=== PATIENT | male | born 1945 | race Caucasian/White ===

== ENCOUNTER 2017-05-18 22:13 | Observation (INO) | payer MEDICARE ==
[~2017-05-18 22:13] MED LIST: ISOVUE-370 76%-LOCM 1 ML ONE
[2017-05-18 22:38] LABS: #Eosinphils 0.2 thou/uL (0.0-0.7); #Lymphocytes 1.2 thou/uL (1.20-3.40); #Monocytes 0.6 thou/uL (0.11-0.59); #Neutrophils 3.9 thou/uL (1.40-6.50); %Basophils 0.7 % (0.0-1.0); %Eosinophils 3.2 % (0.0-10.0); %Monocytes 9.9 % (0.0-10.0); Mean Platelet Volume 7.2 fL (7.4-10.4); Red Blood Cell (RBC) Count 3.98 mill/uL (4.70-6.10); White Blood Cell (WBC) Count 5.9 thou/uL (4.8-10.8)
--- NOTE | 2017-05-18 22:58 | RAD ---
UPRIGHT PORTABLE CHEST ONE VIEW: 05/18/17 HISTORY: 72-year-old male with cough and worsening shortness of breath. COMPARISON: 12/14/14 FINDINGS: A left ICD. Heart size is within normal limits. The lungs are clear. No confluent pneumonia, overt e yokasta or pleural effusion. IMPRESSION: No acute intrathoracic disease. POS: [facility]
[2017-05-18 23:00] LABS: ALT (SGPT) 68 U/L (8-55); AST (SGOT) 28 U/L (5-34); Alkaline Phosphatase 67 U/L (40-150); Anion Gap 15 mmol/L (10-20); BUN (Urea Nitrogen) 29 mg/dL (8.4-25.7); Bilirubin, Total 0.6 mg/dL (0.2-1.2); Calc. Creatinine Clearance 0 mL/min (70-130); Calcium 9.5 mg/dL (7.8-10.44); Carbon Dioxide 24 mmol/L (23-31); Chloride 103 mmol/L (98-107); Estimated GFR-MDRD 41; Globulin 2.9 g/dL (2.4-3.5); Lipase 21 U/L (8-78); Protein, Total 6.7 g/dL (5.8-8.1)
[2017-05-18 23:03] LABS: Troponin I 0.012 ng/mL (< 0.028)
--- NOTE | 2017-05-18 23:56 | CT ---
CT ANGIOGRAM OF CHEST INCLUDING 3D RENDERIN05/18/17 HISTORY: 72-year-old male with shortness of breath. There are some bilateral calcified granulomata. In addition, there are some scattered somewhat linea r pleural based parenchymal changes having an appearance most consistent with some subsegmental atel ectasis or chronic change. Several small noncalcified nodules are noted one in the right lower lobe up to approximately 0.4 cm and a second somewhat ground glass opacity up to 0.4 cm in size are noted . There is no evidence for significant pulmonary embolism. There is three vessel coronary artery edmar cific disease. No pericardial effusion or pleural effusion. The visualized upper abdomen is unremark able. No mediastinal mass or adenopathy. IMPRESSION: No significant CT evidence for acute pulmonary embolism. Some scattered bilateral mostly linear and pleural based parenchymal changes possibly chronic change or subsegmental atelectasis. Multiple bila teral calcified small pulmonary nodules as well as some noncalcified nodular densities less than 0.5 cm in size. No other acute process. CODE: LUNG NODULE POS: [facility]
[2017-05-19] MEDS ORDERED: Furosemide 20 MG/2 ML VIAL ONE (01:30)
[2017-05-19] MEDS ORDERED: Ondansetron HCl/PF 4 MG/2 ML Vial IVP PRN (02:30)
[2017-05-19] MEDS ORDERED: Acetaminophen 325 MG TAB PO PRN ×2 (02:30→06:07)
[2017-05-19] MEDS ORDERED: Ondansetron ODT 4 MG TAB SL PRN (02:30)
[2017-05-19 03:28] VITALS: BMI 27.0
[2017-05-19 05:26] LABS: Anion Gap 14 mmol/L (10-20); BUN (Urea Nitrogen) 28 mg/dL (8.4-25.7); Calc. Creatinine Clearance 47 mL/min (70-130); Calcium 9.9 mg/dL (7.8-10.44); Carbon Dioxide 27 mmol/L (23-31); Chloride 102 mmol/L (98-107); Estimated GFR-MDRD 42
[2017-05-19 05:29] LABS: Troponin I 0.022 ng/mL (< 0.028)
--- NOTE | 2017-05-19 05:50 | PDOC.EVN ---
Event Note - Event Note Event Note: [id number] h&p dictated 1. Dyspnea 2. SHILA 3. H/O HTN 4. H/O DM type 2 5. CAD Plan: see orders
[2017-05-19] MEDS ORDERED: HumaLOG 300 UNITS/3 ML VIAL SC PRN (06:09)
[2017-05-19] MEDS ORDERED: Dextrose 5% in Water 1,000 ML IV PRN (06:09)
[2017-05-19] MEDS ORDERED: Dextrose 50% Abboject 50 ML SYRINGE SLOW IVP PRN (06:09)
[2017-05-19] MEDS ORDERED: Sodium Chloride 0.9% 1,000 ML IV SCH (06:15)
[2017-05-19] MEDS: Levothyroxine Sodium 88 MCG TAB PO SCH ×2 (07:02→08:26)
[2017-05-19] MEDS: glipiZIDE 10 MG TAB PO SCH (08:26)
[2017-05-19] MEDS: Folic Acid 1 MG TAB PO SCH (08:27)
[2017-05-19] MEDS ORDERED: Atenolol 50 MG TAB PO SCH (09:00)
[2017-05-19] MEDS ORDERED: FLU VACC TS2017-18 (>65YR) 0.5 ML SYRINGE IM ONE (09:00)
--- NOTE | 2017-05-19 11:03 | PDOC.PN ---
- Subjective Encounter Start Date: 05/19/17 Encounter Start Time: 08:55 Subjective: sob better, no chest pain - Objective MAR Reviewed: Yes Vital Signs & Weight: Vital Signs (12 hours) Temp Pulse Resp BP Pulse Ox 05/19/17 08:28 98.3 F 72 16 05/19/17 08:26 72 05/19/17 08:00 98.3 F 72 14 137/63 94 L 05/19/17 03:01 69 148/65 H 05/19/17 02:24 97.9 F 70 20 195/83 H 100 Weight Weight 172 lb 11.2 oz I&O: 05/18/17 05/19/17 05/20/17 06:59 06:59 06:59 Intake Total 240 Output Total 300 Balance -60 Result Diagrams: 05/18/17 22:29 05/19/17 05:00 Additional Labs: Accuchecks 05/19/17 06:22 POC Glucose 171 H Phys Exam - Physical Examination HEENT: PERRLA, moist MMs Neck: no JVD, supple Respiratory: no wheezing, no rales Cardiovascular: RRR, no significant murmur Gastrointestinal: soft, non-tender, positive bowel sounds Musculoskeletal: no edema, pulses present Neurological: non-focal, moves all 4 limbs Psychiatric: A&O x 3 Dx/Plan (1) CHF exacerbation Code(s): I50.9 - HEART FAILURE, UNSPECIFIED Status: Acute Qualifiers: Congestive heart failure type: diastolic Qualified Code(s): I50.33 - Acute on chronic diastolic (congestive) heart failure (2) SHILA (acute kidney injury) Code(s): N17.9 - ACUTE KIDNEY FAILURE, UNSPECIFIED Status: Acute (3) DM type 2 (diabetes mellitus, type 2) Status: Chronic Qualifiers: Diabetes mellitus complication status: with unspecified complications Diabetes mellitus mcc insulin use: without assistant terminal manager use Qualified Code( s): E11.8 - Type 2 diabetes mellitus with unspecified complications (4) HTN (hypertension) Code(s): I10 - ESSENTIAL (PRIMARY) HYPERTENSION Status: Chronic Qualifiers: Hypertension type: essential hypertension Qualified Code(s): I10 - Essential (primary) hypertension (5) CAD (coronary artery disease) Code(s): I25.10 - ATHSCL HEART DISEASE OF [place] CORONARY ARTERY W/O ANG PCTRS Status: Chronic Qualifiers: Coronary Disease-Associated Artery/Lesion type: [place] artery [place] vs. transplanted heart: [place] heart Associated angina: without angina Qualified Code(s): I25.10 - Atherosclerotic heart disease of [place] coronary artery without angina pectoris (6) h/o vtach Status: Chronic Comment: with ablation done in [facility] in 11/2014 for recurrent mono Vtach - Plan dc iv fluids -: one dose lasix -: cardiology consultation -: echo, creatinine around 1.6, tropx3-ve, bnp around 300 -: monitor on telemetry * . Review of Systems - Medications/Allergies Allergies/Adverse Reactions: Allergies Allergy/AdvReac Type Severity Reaction Status Date / Time Tlopfer-Xsv-Wzj Reductase Allergy Rash Verified 05/19/17 02:53 Inhibitor Medications: Current Medications Acetaminophen (Tylenol) 650 mg PO Q4H PRN PRN Reason: Headache/Fever or Pain Albuterol/Ipratropium (Duoneb) 3 ml IPPB Q4H PRN PRN Reason: Wheezing or Cough Aspirin (Ecotrin) 325 mg PO 1800 [facility] Atenolol (Tenormin) 50 mg PO BID [facility] Last Admin: 05/19/17 08:26 Dose: 50 mg Dextrose/Water (Dextrose 50%) 25 gm SLOW IVP PRN PRN PRN Reason: Hypoglycemia Folic Acid (Folvite) 0.5 mg PO DAILY [facility] Last Admin: 05/19/17 08:27 Dose: 0.5 mg Furosemide (Lasix) 40 mg SLOW IVP ONE [facility] Glipizide (Glucotrol) 10 mg PO DAILY-[facility] Last Admin: 05/19/17 08:26 Dose: 10 mg Glucagon (Glucagon) 1 mg IM PRN PRN PRN Reason: Hypoglycemia Dextrose/Water (D5w) 1,000 mls @ 0 mls/hr IV .Q0M PRN; As Directed PRN Reason: Hypoglycemia Insulin Human Lispro (Humalog) 0 units SC .MODERATE SLIDING SC PRN PRN Reason: Moderate Correctional Scale Insulin Human Lispro (Humalog) 0 units SC .BEDTIME SLIDING SC PRN PRN Reason: Bedtime Correctional Scale Isosorbide Mononitrate (Imdur Er) 30 mg PO DAILY [facility] Last Admin: 05/19/17 08:26 Dose: 30 mg Levothyroxine Sodium (Synthroid) 88 mcg PO 0600 [facility] Ondansetron HCl (Zofran) 4 mg IVP Q6H PRN PRN Reason: Nausea/Vomiting Stop: 05/19/17 15:00 Ondansetron HCl (Zofran Odt) 4 mg SL Q6H PRN PRN Reason: Nausea/Vomiting Stop: 05/19/17 15:00 Sodium Chloride (Flush - Normal Saline) 10 ml IVF PRN PRN PRN Reason: Saline Flush Stop: 05/19/17 15:00
[2017-05-19] MEDS ORDERED: Furosemide 40 MG/4 ML VIAL SLOW IVP SCH (11:15)
--- NOTE | 2017-05-19 16:14 | HP ---
DATE OF ADMISSION: 05/19/2017 CHIEF COMPLAINT: Dyspnea. HISTORY OF PRESENT ILLNESS: The patient is a 72-year-old male with past medical history of hyperten carson, diabetes mellitus type 2, coronary artery disease, hyperlipidemia, hypothyroidism, who came to the ER complaining of dyspnea. The patient started having dyspnea all of sudden yesterday night, d yspnea occurred at rest, started getting worse and with exertion also. Denies any chest pain. Oswald es any palpations. Denies any lower extremity swelling. Denies any dizziness. Denies any nausea. Denies any vomiting. Denies any recent travel. Denies any PND or orthopnea. PAST MEDICAL HISTORY: As per HPI. PAST SURGICAL HISTORY: Cardiac stent, pacemaker. SOCIAL HISTORY: Denies smoking, positive for occasional alcohol. Denies any drugs. FAMILY HISTORY: Positive for heart problems. REVIEW OF SYSTEMS: Constitutional: Denies any fever, denies any chills. Eyes: Denies vision prob lems. Ears: Denies hearing loss. Neck: Denies any neck pain. Cardiovascular system: Denies any chest pain. Respiratory system: Positive for dyspnea. Cranial nerve system: Denies syncope, den ies lightheadedness. Psychiatric: Denies anxiety. Integumentary: Denies any rash. All other rev iew of systems are reviewed and are negative. PHYSICAL EXAMINATION: CONSTITUTIONAL/VITAL SIGNS: At the time of H and P performed, blood pressure is 148/64, temperature 97.9, heart rate 70, respiratory rate 20, pulse 69. Initial blood pressure at the time of admissio n 195/83. GENERAL: The patient appears comfortable. HEENT: Pupils equal, round, and reactive. Anterior nares patent. Nose normal. Teeth intact. Ton abhinav is moist. NECK: Supple. No JVD. CARDIOVASCULAR SYSTEM: S1, S2 present. Regular rate and rhythm, no murmurs, no rubs, no gallops. RESPIRATORY SYSTEM: No wheezing, no rhonchi. Breath sounds bilaterally. GASTROINTESTINAL: Abdomen soft, nontender, no guarding, no organomegaly, no masses felt. MUSCULOSKELETAL: No edema. INTEGUMENTARY: No rashes seen. PSYCHIATRIC: Mood appropriate at this time. LABORATORY DATA: At the time of H and P performed, sodium 139, potassium 4.1, chloride 102, CO2 of 27, BUN 28, creatinine 1.62. BNP 360. Troponin 0.022. White count 5.9, hemoglobin 12.2, platelet count is 156. Chest x-ray, no acute infiltrates seen. CT chest was done in the ER, no significant pulmonary embolism seen. Positive for calcified pulmonary nodules seen. ASSESSMENT AND PLAN: The patient is 72 years old male. 1. Dyspnea, etiology unclear. CT is negative for pulmonary embolism. Monitor patient closely. Pl an to check 2D echo. Plan to consult Cardiology to evaluate the patient. 2. Acute kidney injury. Creatinine is elevated from the baseline, hold diuretics. Repeat BMP in a .m. We will do gentle IV fluids as there is no evidence of any fluid overload to prevent further __ ___. 3. Diabetes type 2. Monitor blood sugars. We will do insulin sliding scale. 4. History of hypertension. Continue blood pressure medications. 5. History of hyperlipidemia. Continue statin. 6. History of coronary artery disease. Continue aspirin. The case was discussed in detail with the patient. The patient is FULL CODE.
[2017-05-19] MEDS: HumaLOG 300 UNITS/3 ML VIAL SC PRN (17:38)
[2017-05-19] MEDS ORDERED: Aspirin 325 mg Enteric Coated Tablet PO SCH (18:00)
[2017-05-19] MEDS ORDERED: Carvedilol 6.25 MG TAB PO SCH (20:00)
--- NOTE | 2017-05-19 20:30 | CON ---
DATE OF CONSULTATION: 05/19/2017 REASON FOR ADMISSION: Shortness of breath. HISTORY OF PRESENT ILLNESS: Mr. Mcguire is a pleasant 72-year-old gentleman. The patient has a hi story of coronary artery disease, also some history of ventricular arrhythmias. He was doing relati vely well in the last day or two prior to this admission and started having some shortness of breath . Then he got progressively very short of breath and came here to the emergency room. Then he had a high BNP and received a dose of Lasix with good results and begin to feel better. He is doing wel l now. His pressure was elevated about the 170 systolic range, but not severely elevated. PAST MEDICAL HISTORY: The patient has history of stent implantation in the left anterior descending artery. Then he subsequently came back for evaluation and underwent cardiac catheterization in 2013. The stent had restenosed, the distal edge closed and was collateralized distally. Medical th gabby was advised and he has done well since then. He has also had some problem with ventricular ar rhythmias and has undergone a defibrillator implantation with biventricular device. He has been doi ng well from that standpoint. He did not have any chest pain or pressure. MEDICATIONS AT HOME: Included 1. Levothyroxine. 2. Atenolol 50 mg twice daily. 3. Metformin. 4. Glipizide. 5. Isosorbide. 6. Aspirin. 7. Lisinopril HCT. ALLERGIES: He is intolerant to STATINS, have severe muscle pains. REVIEW OF SYSTEMS: Constitutional: No significant weight gain or loss. Vision: No changes. Hearing: No changes. P ulmonary: No cough or wheezing. Gastrointestinal: No nausea, vomiting, diarrhea. Skin: No rashe s. Neurologic: No unilateral weakness or numbness. Psychiatric: No unusual depression or anxiety . SOCIAL HISTORY: Occasional alcohol just a rare beer. FAMILY HISTORY: Negative for heart disease at a young age. PHYSICAL EXAMINATION: GENERAL: This is a pleasant gentleman resting comfortably in no distress. VITAL SIGNS: Blood pressure 174/77, pulse 74, regular. LUNGS: Clear. CARDIAC: Normal S1, normal S2. ABDOMEN: Soft, nontender. EXTREMITIES: No clubbing, no cyanosis. There is no edema. HEMATOLOGIC: No unusual bruising. PSYCHIATRIC: Mood and affect normal. NEUROLOGIC: Grossly normal. SKIN: Warm and dry. PERTINENT LABORATORY: The hemoglobin is 12.2. D-dimer is 1.42. Creatinine is 1.62 which is higher than usual, glucose 171, BNP 335. Echocardiogram showed normal left ventricular function with ejec tion fraction 55-60%. There is severe left atrial dilatation indicating likely has chronically elev ated left atrial pressure. ASSESSMENT: 1. Congestive heart failure, diastolic, acute, improved now. 2. Coronary artery disease. 3. Intolerant to STATINS. 4. Hypertension. 5. Renal insufficiency. PLAN: 1. We will hold JULIET inhibitors in view of the renal failure. 2. Change the beta blockers to carvedilol. 3. Add amlodipine. 4. We will try to review all cardiac catheterization films to see whether any other intervention wo uld be indicated. At that time, no other intervention was indicated. 5. Recheck lipids in the morning, possibly home tomorrow.
[2017-05-20 05:24] LABS: #Eosinphils 0.1 thou/uL (0.0-0.7); #Lymphocytes 1.1 thou/uL (1.20-3.40); #Monocytes 0.6 thou/uL (0.11-0.59); #Neutrophils 3.4 thou/uL (1.40-6.50); %Basophils 0.6 % (0.0-1.0); %Eosinophils 2.2 % (0.0-10.0); %Lymphocytes 21.5 % (21.0-51.0); %Monocytes 11.3 % (0.0-10.0); Hematocrit 36.6 % (42.0-52.0); Mean Platelet Volume 7.2 fL (7.4-10.4); Red Blood Cell (RBC) Count 4.06 mill/uL (4.70-6.10); White Blood Cell (WBC) Count 5.2 thou/uL (4.8-10.8)
[2017-05-20 05:46] LABS: Anion Gap 14 mmol/L (10-20); BUN (Urea Nitrogen) 33 mg/dL (8.4-25.7); Calc. Creatinine Clearance 48 mL/min (70-130); Calcium 9.6 mg/dL (7.8-10.44); Carbon Dioxide 26 mmol/L (23-31); Chloride 100 mmol/L (98-107); Cholesterol 153 mg/dl (< 200 Desired); Estimated GFR-MDRD 44; LDL Cholesterol, Calculated 95 mg/dL
[2017-05-20] MEDS ORDERED: Levothyroxine Sodium 88 MCG TAB PO SCH (06:00)
[2017-05-20] MEDS: HumaLOG 300 UNITS/3 ML VIAL SC PRN (06:03)
[2017-05-20] MEDS ORDERED: Carvedilol 6.25 MG TAB PO SCH (08:00)
[2017-05-20 08:27] VITALS: BP 123/86; TEMP 98.5
[2017-05-20] MEDS ORDERED: Amlodipine 5 MG TAB PO SCH (09:00)
[2017-05-20] MEDS: glipiZIDE 10 MG TAB PO SCH (09:43)
[2017-05-20] MEDS: Folic Acid 1 MG TAB PO SCH (09:51)
--- NOTE | 2017-05-20 14:11 | PDOC.PN ---
- Subjective Encounter Start Date: 05/20/17 Encounter Start Time: 07:00 Subjective: no chest pain, breathing better - Objective MAR Reviewed: Yes Vital Signs & Weight: Vital Signs (12 hours) Temp Pulse Resp BP BP Pulse Ox 05/20/17 09:48 70 123/86 05/20/17 09:46 123/86 05/20/17 08:50 98.5 F 70 20 95 05/20/17 07:20 98.5 F 70 20 123/86 95 05/20/17 03:10 99.1 F 72 14 118/59 L 94 L Weight Weight 170 lb 1.6 oz I&O: 05/19/17 05/20/17 05/21/17 06:59 06:59 06:59 Intake Total 240 2160 500 Output Total 300 3225 Balance -60 -1065 500 Result Diagrams: 05/20/17 04:56 05/20/17 04:56 Additional Labs: Accuchecks 05/20/17 05/19/17 05/19/17 05:12 20:15 17:01 POC Glucose 176 H 195 H 219 H Phys Exam - Physical Examination HEENT: PERRLA, moist MMs Neck: no JVD, supple Respiratory: no wheezing, no rales Cardiovascular: RRR, no significant murmur Gastrointestinal: soft, non-tender, positive bowel sounds Musculoskeletal: no edema, pulses present Neurological: non-focal, moves all 4 limbs Psychiatric: A&O x 3 Dx/Plan (1) CHF exacerbation Code(s): I50.9 - HEART FAILURE, UNSPECIFIED Status: Acute Qualifiers: Congestive heart failure type: diastolic Qualified Code(s): I50.33 - Acute on chronic diastolic (congestive) heart failure (2) SHILA (acute kidney injury) Code(s): N17.9 - ACUTE KIDNEY FAILURE, UNSPECIFIED Status: Acute (3) DM type 2 (diabetes mellitus, type 2) Status: Chronic Qualifiers: Diabetes mellitus complication status: with unspecified complications Diabetes mellitus buttermilk drier operator insulin use: without buttermilk drier operator use Qualified Code( s): E11.8 - Type 2 diabetes mellitus with unspecified complications (4) HTN (hypertension) Code(s): I10 - ESSENTIAL (PRIMARY) HYPERTENSION Status: Chronic Qualifiers: Hypertension type: essential hypertension Qualified Code(s): I10 - Essential (primary) hypertension (5) CAD (coronary artery disease) Code(s): I25.10 - ATHSCL HEART DISEASE OF [place] CORONARY ARTERY W/O ANG PCTRS Status: Chronic Qualifiers: Coronary Disease-Associated Artery/Lesion type: [place] artery [place] vs. transplanted heart: [place] heart Associated angina: without angina Qualified Code(s): I25.10 - Atherosclerotic heart disease of [place] coronary artery without angina pectoris (6) h/o vtach Status: Chronic Comment: with ablation done in [facility] in 11/2014 for recurrent mono Vtach - Plan hemostable -: dc pt home -: to f/u with PCP in 1 week. * .
--- NOTE | 2017-05-20 15:05 | DIS ---
DATE OF ADMISSION: 05/19/2017 DATE OF DISCHARGE: 05/20/2017 DISCHARGE DISPOSITION: To home. PRIMARY DISCHARGE DIAGNOSES: Mild congestive heart failure exacerbation resolved, acute kidney inju ry resolving, diabetes mellitus type 2, hypertension, coronary artery disease, prior history of vent ricular tachycardia with ablation done at [facility] in 11/2014. PROCEDURES DONE DURING HOSPITALIZATION: Echo with 2D Doppler done showed an ejection fraction of 55 % to 60%. Left atrium was severely dilated with size of 5.[address] angio chest showed no evidence of pulmonary embolism. He has had chronic changes seen in his lungs. Hemoglobin and hematocrit 12 and 36, platelet count 156. Total cholesterol 153, triglycerides 120, LDL 95, HDL 34, BUN and crea tinine are 33 and 1.5 on the day of discharge. BNP 335. Troponin x3 is negative. DISCHARGE MEDICATIONS: Norvasc 5 mg p.o. daily, aspirin 325 mg p.o. daily, Coreg 12.5 mg p.o. twice daily, folic acid 0.4 mg p.o. daily, Imdur extended release 30 mg p.o. daily, levothyroxine 88 mcg p.o. daily, glipizide 10 mg p.o. daily and metformin 750 mg p.o. twice daily. ALLERGIES: Allergic to STATINS. INPATIENT CONSULTS: Dr. Myers. DISCHARGE PLAN: Patient to follow up with primary care physician in 1 week and Cardiology as advise d. BRIEF COURSE DURING HOSPITALIZATION: Patient initially came to ER with complaints of exertional judy rtness of breath. He was essentially admitted for mild congestive heart failure exacerbation. He h as had gentle diuresis done during his stay here. He has responded well to Lasix. Prior to dischar , he is ambulating and eating well. He was also evaluated by Dr. Myers. His echo showed good ej ection fraction. His medications were optimized for his vital signs and for his renal function. He needs to follow up with his primary care physician in 1 week. Please see a [id number] documentat [facility] for the day of discharge.
== END 2017-05-20 11:43 | disposition home or self-care (01) ==
LOC: ERS 22:13 → 2SW 05-19 01:54
PROVIDERS: ADMIT Internal Medicine; ATTEND Internal Medicine
DX: I11.0 Hypertensive heart disease with heart failure (principal); I50.33 Acute on chronic diastolic (congestive) heart failure; N17.9 Acute kidney failure, unspecified; E11.9 Type 2 diabetes mellitus without complications; I25.10 Atherosclerotic heart disease of native coronary artery without angina pectoris; I47.2 Ventricular tachycardia; E03.9 Hypothyroidism, unspecified; E78.5 Hyperlipidemia, unspecified; Z79.84 Long term (current) use of oral hypoglycemic drugs; Z79.82 Long term (current) use of aspirin; Z79.899 Other long term (current) drug therapy; Z88.8 Allergy status to other drugs, medicaments and biological substances; Z95.818 Presence of other cardiac implants and grafts; Z95.810 Presence of automatic (implantable) cardiac defibrillator
CPT/HCPCS: 71010; 71275; 80048 ×2; 80053; 80061; 82553; 82962 ×2; 83690; 83880 ×2; 84484 ×3; 85025 ×2; 85379; 93005; 93306; 96361; 96374; 96376; 99285; G0008; G0378; Q2036; 36415; 36416; 90471; 90682; J1940

== ENCOUNTER 2018-09-26 09:00 | Day surgery (SDC) | payer MEDICARE ==
[2018-09-25 12:19] VITALS: BMI 25.8
[2018-09-26 09:39] LABS: #Eosinphils 0.1 thou/uL (0.0-0.7); #Lymphocytes 1.5 thou/uL (1.20-3.40); #Monocytes 0.4 thou/uL (0.11-0.59); #Neutrophils 3.1 thou/uL (1.40-6.50); %Basophils 0.9 % (0.0-1.0); %Eosinophils 2.1 % (0.0-10.0); %Lymphocytes 29.1 % (21.0-51.0); %Monocytes 7.9 % (0.0-10.0); Hemoglobin 13.6 g/dL (14.0-18.0); Mean Corpuscular HGB CONC 33.3 g/dL (32.0-36.0); Mean Corpuscular Hemoglobin 29.5 pg (27.0-31.0); Mean Corpuscular Volume 88.5 fL (78.0-98.0); Mean Platelet Volume 7.4 fL (7.4-10.4); Platelet Count 158 thou/uL (130-400); RBC Distribution Width 12.3 % (11.5-14.5); Red Blood Cell (RBC) Count 4.63 mill/uL (4.70-6.10); White Blood Cell (WBC) Count 5.1 thou/uL (4.8-10.8)
[2018-09-26 09:45] LABS: INR-International Normal Ratio 1.2; PTT 36.1 SEC (22.9-36.1); Prothrombin Time 15.5 SEC (12.0-14.7)
[2018-09-26 09:54] LABS: ALT (SGPT) 14 U/L (8-55); AST (SGOT) 11 U/L (5-34); Alkaline Phosphatase 62 U/L (40-150); Anion Gap 15 mmol/L (10-20); BUN (Urea Nitrogen) 25 mg/dL (8.4-25.7); Bilirubin, Total 1.2 mg/dL (0.2-1.2); Calc. Creatinine Clearance 71 mL/min (70-130); Calcium 9.2 mg/dL (7.8-10.44); Carbon Dioxide 26 mmol/L (23-31); Chloride 103 mmol/L (98-107); Estimated GFR-MDRD 73; Globulin 2.5 g/dL (2.4-3.5); Glucose 192 mg/dL (83-110); Potassium 4.7 mmol/L (3.5-5.1); Protein, Total 6.5 g/dL (5.8-8.1); Sodium 139 mmol/L (136-145)
[2018-09-26] MEDS ORDERED: PROPOFOL 20 ML ONE (10:26)
--- NOTE | 2018-09-26 13:09 | OP ---
DATE OF PROCEDURE: 09/26/2018 INTERNAL CARDIOVERSION REPORT REASON FOR PROCEDURE: Mr. Mcguire is a pleasant 73-year-old man with history of sustained ventricular arrhythmias, who had prior history of ischemic cardiomyopathy, ventricular fibrillation ablation, ICD placement. He sustained atrial fibrillation/flutter. He was loaded with sotalol and is chronic anticoagulated. He is here for a planned cardioversion. DESCRIPTION OF PROCEDURE: The patient received propofol by Anesthesia specialist. The ICD was interrogated pre and post procedure. After adequate level of sedation achieved, a 35-joule internal shock promptly converted the patient back to sinus rhythm. The device function and programming were checked postprocedure and we continue anti-atrial tachycardia pacing therapies as well as base atrial pacing rate at 70 beats per minute. CONCLUSION: Successful cardioversion through the ICD device. PLAN: Continue sotalol and Eliquis for anticoagulation. Job ID: [id number]
[2018-09-26] MEDS ORDERED: PROPOFOL 200 MG/20 ML VIAL ONE (14:58)
--- NOTE | 2018-09-26 15:03 | EKG ---
Test Reason : PREOP Blood Pressure : / mmHG Vent. Rate : 070 BPM Atrial Rate : 267 BPM P-R Int : 000 ms QRS Dur : 142 ms QT Int : 484 ms P-R-T Axes : 000 015 060 degrees QTc Int : 522 ms Electronic ventricular pacemaker When compared with ECG of 18-MAY-2017 22:24, No significant change was found Confirmed by JOE HADDAD ([id number]) on 09/26/2018 3:03:01 PM Referred By: ANUEL Confirmed By:JOE HADDAD
== END 2018-09-26 12:03 | disposition home or self-care (01) ==
LOC: CCL 09:00
PROVIDERS: ATTEND Internal Medicine Cardiovascular Disease
PROC: 5A2204Z Restoration of Cardiac Rhythm, Single (ICD-10-PCS; principal; 2018-09-26)
DX: I48.0 Paroxysmal atrial fibrillation (principal); I48.1 Persistent atrial fibrillation; I25.5 Ischemic cardiomyopathy; I25.10 Atherosclerotic heart disease of native coronary artery without angina pectoris; I44.39 Other atrioventricular block; Z79.82 Long term (current) use of aspirin; Z79.84 Long term (current) use of oral hypoglycemic drugs; Z79.01 Long term (current) use of anticoagulants; Z79.899 Other long term (current) drug therapy; Z88.8 Allergy status to other drugs, medicaments and biological substances; Z95.810 Presence of automatic (implantable) cardiac defibrillator
CPT/HCPCS: 80053; 84443; 85025; 85610; 85730; 92960; 93005; 93010; J2704

== ENCOUNTER 2018-12-02 05:44 | Inpatient (IN) | payer MEDICARE ==
[2018-12-02] MEDS ORDERED: Heparin 10,000 UNITS/1 ML VIAL ONE ×3 (06:56→11:27)
[2018-12-02 07:00] LABS: #Eosinphils 0.1 thou/uL (0.0-0.7); #Lymphocytes 1.5 thou/uL (1.20-3.40); #Monocytes 0.5 thou/uL (0.11-0.59); #Neutrophils 3.1 thou/uL (1.40-6.50); %Basophils 0.7 % (0.0-1.0); %Eosinophils 2.7 % (0.0-10.0); %Lymphocytes 28.6 % (21.0-51.0); %Monocytes 9.6 % (0.0-10.0); %Neutrophils 58.4 % (42.0-75.0); Hemoglobin 13.7 g/dL (14.0-18.0); Mean Corpuscular HGB CONC 34.3 g/dL (32.0-36.0); Mean Corpuscular Hemoglobin 30.5 pg (27.0-31.0); Mean Platelet Volume 7.1 fL (7.4-10.4); Platelet Count 155 thou/uL (130-400); RBC Distribution Width 12.5 % (11.5-14.5); Red Blood Cell (RBC) Count 4.49 mill/uL (4.70-6.10); White Blood Cell (WBC) Count 5.3 thou/uL (4.8-10.8)
[2018-12-02] MEDS ORDERED: Fentanyl 100 MCG/2 ML VIAL ONE (07:08)
[2018-12-02 07:10] LABS: INR-International Normal Ratio 1.1; PTT 34.4 SEC (22.9-36.1); Prothrombin Time 14.5 SEC (12.0-14.7)
[2018-12-02 07:22] LABS: Anion Gap 12 mmol/L (10-20); BUN (Urea Nitrogen) 19 mg/dL (8.4-25.7); Calc. Creatinine Clearance 80 mL/min (70-130); Calcium 9.6 mg/dL (7.8-10.44); Carbon Dioxide 26 mmol/L (23-31); Chloride 105 mmol/L (98-107); Estimated GFR-MDRD 83; Glucose 111 mg/dL (83-110); Potassium 4.2 mmol/L (3.5-5.1); Sodium 139 mmol/L (136-145)
[2018-12-02] MEDS ORDERED: Iopamidol 370 76% 50 ML VIAL FS ONE (08:34)
[2018-12-02] MEDS ORDERED: Isoproterenol 0.2 MG/1 ML AMP ONE (10:41)
[2018-12-02] MEDS ORDERED: Protamine Sulfate 50 MG/5 ML VIAL ONE ×2 (10:53→11:09)
[2018-12-02] MEDS ORDERED: PHENYLEPHRINE-NS 100 MCG/ML 10 ML SYRINGE ONE ×2 (10:53→11:17)
[2018-12-02] MEDS ORDERED: PROPOFOL 200 MG/20 ML VIAL ONE (11:17)
[2018-12-02] MEDS ORDERED: Lidocaine 1% PF 5 ML VIAL ONE (11:17)
[2018-12-02] MEDS ORDERED: Rocuronium Bromide 10 MG/ML (10ML VIAL) ONE (11:17)
[2018-12-02] MEDS ORDERED: Glycopyrrolate 0.2 MG/ML 5 ML SYRINGE ONE (11:17)
[2018-12-02] MEDS ORDERED: ADMIXTURE FEE IV SCH (11:30)
[2018-12-02] MEDS ORDERED: HUMAN PROTHROMBIN COMPLX IV SCH (11:30)
[2018-12-02] MEDS ORDERED: Ketorolac Tromethamine 30 MG/ML VIAL ONE (13:17)
[2018-12-02] MEDS ORDERED: HYDROmorphone 2 MG/ML VIAL ONE (13:17)
[2018-12-02] MEDS ORDERED: HYDROmorphone 0.5 MG/0.5 ML SYRINGE SLOW IVP PRN (14:17)
[2018-12-02] MEDS ORDERED: Nitroglycerin 0.4 MG TAB (25 Tab Bottle) SL PRN (15:11)
--- NOTE | 2018-12-02 15:42 | OP ---
DATE OF PROCEDURE: 12/02/2018 PROCEDURES PERFORMED: 1. Comprehensive electrophysiology testing with 3-dimensional mapping and ablation of atrial fibrillation. 2. Mapping and ablation of atypical flutter. 3. Dual-chamber resynchronization and defibrillator reprogramming. 4. Pericardiocentesis for treatment of a small acute pericardial effusion. ESTIMATED BLOOD LOSS: 50 mL. TOTAL CONTRAST: Less than 2 mL. TOTAL FLUORO TIME: 1.1 minutes. ACUTE COMPLICATIONS: Small acute pericardial effusion on top of a small chronic pericardial effusion, ultimately deemed significant enough to drain. METHODS: After informed consent was obtained, the patient was taken to the EP lab in a fasting state. Both groins and the subxiphoid area were prepped and draped in usual sterile fashion using ultrasound guidance. The right and left femoral veins were accessed, and wires were inserted into the central venous system. Wires were used to place an 11-Belizean and 8-Belizean sheaths in the left groin and two 8-Belizean sheaths in the right groin. All 8-Belizean sheaths were replaced by long sheaths for catheter stability. An ablation and circular catheter was placed in the right groin and advanced up to the right atrium. A 3D map was obtained at the right atrium and the coronary sinus. A 20-pole catheter was placed in the left groin and advanced to the coronary sinus. An echo probe was placed in the left groin and advanced up to the right atrium. The patient was then anticoagulated and transseptal catheterization was performed. This required ultrasound guidance with 3D mapping in 2 obliquities. A temperature probe was placed in the esophagus for monitoring of temperatures. A 3D map was obtained of the left atrium and ablation was delivered, completely isolating all 4 pulmonary veins and posterior wall of the left atrium. The patient was then in atypical flutter from the distal CS to lateral left atrium, which was ablated aggressively. Ultimately with this organized and slowed this arrhythmia, the patient was cardioverted restoring sinus rhythm. During the ablation, the patient had one evidence of a steam pop. There was a small preprocedure pericardial effusion seen. This appeared to expand slightly. Because of the acute nature of the new effusion, it was felt clinically significant enough to drain. This was drained after the catheters were withdrawn to the right atrium. Heparin was fully reversed and pericardiocentesis was performed from the previously prepped subxiphoid area using an 8-[place] Arrow sheath. Roughly 100 mL of serosanguineous fluid was removed. It was not all blood and likely was roughly 50% serous fluid and 50% blood. Out of an abundance of caution, this was left in place and the patient was sent to ICU as a precaution. In addition to heparin reversal, the patient also received Kcentra to reverse the direct anticoagulant. RESULTS: 1. Baseline intervals: The patient was in an atypical flutter cycle length 220 milliseconds at baseline. Activation and entrainment mapping suggest this was originating from the lateral side of the left atrium along the mitral valve isthmus region and appeared to be micro-reentrant. This was ablated as mentioned in the methods section. 2. Ablation details: A total of 37 minutes of RF was delivered with a Sterling Consolidatedter open irrigated ablation catheter. IMPRESSION: 1. Successful ablation and isolation of all 4 pulmonary veins in the posterior wall of left atrium along with ablation of an atypical flutter arising from the lateral wall of the left atrium. 2. Evidence of a small preprocedure effusion, which expanded to roughly double the size during the procedure. As a result, this was drained as a precaution. RECOMMENDATIONS: 1. Leave pericardial drain in overnight to gravity. 2. Reprogram defibrillator to dual-chamber pacing. 3. Resume anticoagulation tomorrow. Job ID: [id number]
--- NOTE | 2018-12-02 16:51 | EKG ---
Test Reason : PREOP Blood Pressure : / mmHG Vent. Rate : 070 BPM Atrial Rate : 300 BPM P-R Int : 000 ms QRS Dur : 144 ms QT Int : 444 ms P-R-T Axes : -72 039 065 degrees QTc Int : 479 ms Electronic ventricular pacemaker When compared with ECG of 26-SEP-2018 09:37, No significant change was found Confirmed by DR. David PALMA ([id number]) on 12/02/2018 4:50:49 PM Referred By: HOLLI Confirmed By:DR. David PALMA
[2018-12-02] MEDS ORDERED: Albuterol Sulfate 1.25 MG/3 ML NEB ONE (18:07)
[2018-12-02] MEDS ORDERED: Furosemide 40 MG/4 ML VIAL ONE (19:16)
[2018-12-02] MEDS ORDERED: Labetalol HCl 100 MG/20 ML VIAL SLOW IVP PRN (19:18)
[2018-12-02 19:26] VITALS: BMI 25.0
[2018-12-02] MEDS ORDERED: Furosemide 40 MG/4 ML VIAL SLOW IVP SCH (19:30)
[2018-12-02] MEDS: Carvedilol 25 MG TAB PO SCH (21:01)
[2018-12-02] MEDS: Apixaban 5 MG TAB PO SCH (21:01)
[2018-12-02] MEDS: Ketorolac Tromethamine 30 MG/ML VIAL IVP SCH (21:01)
[2018-12-02] MEDS: metFORMIN 500 MG TAB PO SCH (21:04)
[2018-12-03] MEDS: Levothyroxine Sodium 88 MCG TAB PO SCH (05:45)
[2018-12-03] MEDS: Ketorolac Tromethamine 30 MG/ML VIAL IVP SCH ×3 (05:45→21:03)
[2018-12-03 06:28] LABS: Anion Gap 14 mmol/L (10-20); BUN (Urea Nitrogen) 27 mg/dL (8.4-25.7); Calc. Creatinine Clearance 59 mL/min (70-130); Calcium 8.9 mg/dL (7.8-10.44); Carbon Dioxide 22 mmol/L (23-31); Chloride 104 mmol/L (98-107); Estimated GFR-MDRD 61; Glucose 240 mg/dL (83-110); Magnesium 1.7 mg/dL (1.6-2.6); Potassium 4.1 mmol/L (3.5-5.1); Sodium 136 mmol/L (136-145)
[2018-12-03] MEDS: glipiZIDE 10 MG TAB PO SCH (06:35)
[2018-12-03] MEDS: Folic Acid 1 MG TAB PO SCH (08:03)
[2018-12-03] MEDS: metFORMIN 500 MG TAB PO SCH ×2 (08:04→17:01)
[2018-12-03] MEDS: Aspirin Chewable 81 MG TAB PO SCH (08:05)
[2018-12-03] MEDS: Furosemide 20 MG TAB PO SCH (08:05)
[2018-12-03] MEDS: Carvedilol 25 MG TAB PO SCH ×2 (08:05→17:01)
[2018-12-03] MEDS: Amlodipine 5 MG TAB PO SCH (08:05)
[2018-12-03] MEDS: Apixaban 5 MG TAB PO SCH ×2 (08:17→21:02)
[2018-12-03] MEDS ORDERED: Calcium Carbonate 500 MG ChewTAB PO PRN (09:22)
[2018-12-03] MEDS ORDERED: Famotidine 20 MG TAB PO SCH (09:30)
[2018-12-03] MEDS ORDERED: Magnesium 2 GM/50 ML 2 GM in Premix Bag 1 BAG IVPB SCH (09:30)
--- NOTE | 2018-12-03 10:03 | RAD ---
EXAM: Single view of the chest HISTORY: Hypoxia COMPARISON: 05/18/2017 FINDINGS: Single view of the chest shows a normal sized cardiomediastinal silhouette. The patient is unchanged in position. A catheter projects over the left aspect of the heart. There is no evidence of consolidation, mass, or pleural effusion. The bones are unremarkable. IMPRESSION: No evidence of acute cardiopulmonary disease
[2018-12-03] MEDS ORDERED: HYDROcodone/Acetaminophen 10/325 mg Tablet PO PRN (12:12)
--- NOTE | 2018-12-03 13:05 | CON ---
DATE OF CONSULTATION: 12/03/2018 SERVICE: Pulmonary Medicine. REASON FOR CONSULT: ICU patient. HISTORY OF PRESENT ILLNESS: The patient is a 73-year-old white male with past medical history significant for coronary artery disease and sustained ventricular tachyarrhythmias. Ultimately, he went for an ablation procedure. He is postop day 1 from that. He also had resynchronization of his dual-lead venous pacing device. He had some pericardial effusion. A pericardiocentesis was also performed. He was left in the ICU overnight with a drain in place. He currently has no complaints of shortness of breath or chest discomfort. Yesterday evening, he was having some high blood pressures, and significant difficulties with his breathing. This was treated with some blood pressure medications and a dose of Lasix. He settled back down and had an uneventful night. He tolerated p.o. this morning. He did not have any nausea or vomiting. He is not having any fevers, chills, cough, sputum production, other than some frothy white material. He has no complaints of increasing lower extremity swelling, and is otherwise returning to his usual state of health. He has not had significant output from his drain overnight. Of note, this was an elective outpatient procedure. PAST MEDICAL HISTORY: 1. Coronary artery disease. 2. Type 2 diabetes mellitus. 3. Hypertension. 4. Dyslipidemia. 5. Hypothyroidism. 6. History of polymorphic ventricular tachycardia, status post ablation procedure. 7. High-grade AV block, status post pacemaker placement. 8. Atrial fibrillation/flutter, paroxysmal. PAST SURGICAL HISTORY: 1. Percutaneous coronary intervention. 2. Pacemaker placement. 3. Atrial ablation procedure. 4. Ventricular ablation. SOCIAL HISTORY: Negative for alcohol, tobacco, or illicit drug use to any significant degree at this point. He has no exposure to chemicals, dust, asbestos, or tuberculosis. FAMILY HISTORY: Noncontributory. ALLERGIES: statins MEDICATIONS: A list of inpatient medications were reviewed. REVIEW OF SYSTEMS: General; head, ears, eyes, nose, and throat; cardiovascular; respiratory; GI; ; musculoskeletal; neurologic; and skin are negative except as mentioned in the HPI. PHYSICAL EXAMINATION: VITAL SIGNS: Afebrile, pulse 82, blood pressure 104/79, respirations 17, saturation 94% on 2 L nasal cannula. GENERAL: The patient is awake and alert. No apparent distress. LUNGS: Decent air entry. Dependent crackles are noted. No prolonged expiratory phase or wheezing is appreciated. HEART: Normal rate, regular. ABDOMEN: Soft, nontender, and nondistended. Bowel sounds are positive. MUSCULOSKELETAL: No cyanosis or clubbing. No pitting in bilateral lower extremities. NEUROLOGIC: Grossly nonfocal. LABORATORY DATA: WBC 5.3, hemoglobin 13.7, and platelets 155,000. INR 1.1. Activated clotting time 210. Creatinine 1.18, which is close to baseline. Basic metabolic profile is otherwise unremarkable. Recent liver function studies were unremarkable. Magnesium 1.7. ASSESSMENT: 1. Acute hypoxic respiratory failure, improving. 2. Atrial fibrillation/flutter, status post ablation. 3. Pericardial effusion, status post pericardiocentesis with drain currently in place. DISCUSSION AND PLAN: The patient is doing absolutely wonderful from a respiratory standpoint. We will continue to diurese him down to euvolemia. From my perspective, he is stable for transition out of the ICU to the telemetry unit, though I will leave final disposition to Electrophysiology. I will get a chest x-ray to investigate his hypoxemic failure, and provide him with a reflux medication, which is something he typically takes at home. I will follow in this location. 70 minutes have been devoted to this patient in various activities. I personally reviewed all imaging studies and laboratory data noted within this document. For fifty percent of this time, I was interacting with the patient at the bedside or coordinating care with the care team. For the remainder of the time I was immediately available to the patient in the hospital unit. Job ID: [id number] MTDD
--- NOTE | 2018-12-03 15:11 | PDOC.CTH ---
Cardiology Progress Note - Subjective EP PROGRESS NOTE: 12/03/18 Seen as follow up after left atrial ablation on 12/02/18 with subsequent pericardial effusion requiring pericardiocentesis and drain placement. Has been in ICU overnight. He feels somewhat tired and weak but denies any heart racing, palpitations, chest pain/pressure, dizziness, stroke like symptoms. Dtr is bedside this AM. - Objective Vital Signs Temp Pulse Ox 12/03/18 08:00 92 L 12/03/18 04:00 98.8 F 96 Admit Weight 2.55 oz Weight 159 lb 6.307 oz 12/02/18 12/03/18 12/04/18 06:59 06:59 06:59 Intake Total 400 440 Output Total 1305 115 Balance -905 325 - Physical Examination General/Neuro: alert & oriented x3, NAD Neck: carotid US brisk, no JVD present Lungs: CTA, unlabored respirations Heart: PMI normal, RRR Abdomen: NT/ND, soft Other PE findings: pericardial draine in place to gravity - Telemetry Telemetry Rhythm: NSR, LIQUOR ESTABLISHMENT MANAGER pacing seen - Labs Result Diagrams: 12/02/18 06:47 12/03/18 05:43 - Assessment/Plan 1. Atypical atrial flutter - s/p left atrial ablation, 37 minutes. - isolation of 4 PV, PW, as well as atyp AFL arising from lateral LA wall. - resumed OAC this AM - maintaining SR since ablation 2. Pericardial effusion - small acute, doubled in size during procedure - drained as precaution - small amount of drainage over HS. aspirated additional 40mLbedside. echo evaluation this AM looked fine so drain was removed. - starting on colchicine 0.3mg PO BID to manage post ablation inflammation Ok to transfer to tele. Possible DC tomorrow if remains stable. BiV ICD mode: MVP, consistent LIQUOR ESTABLISHMENT MANAGER pacing is seen on tele.
[2018-12-03] MEDS ORDERED: Dextrose 50% Abboject 50 ML SYRINGE IVP PRN (16:32)
[2018-12-03] MEDS ORDERED: Dextrose 5% in Water 1,000 ML IV PRN (16:32)
[2018-12-03] MEDS: HumaLOG 300 UNITS/3 ML VIAL SC PRN ×2 (16:57→21:04)
[2018-12-03] MEDS: Sucralfate 1 GM TAB PO SCH ×2 (17:02→21:03)
--- NOTE | 2018-12-03 17:49 | EKG ---
Test Reason : Blood Pressure : / mmHG Vent. Rate : 091 BPM Atrial Rate : 122 BPM P-R Int : 100 ms QRS Dur : 136 ms QT Int : 374 ms P-R-T Axes : 081 198 050 degrees QTc Int : 460 ms Atrial-sensed ventricular-paced rhythm with intrinsic complexes Biventricular pacemaker detected Abnormal ECG When compared with ECG of 02-DEC-2018 06:48, Vent. rate has increased BY [address] David PALMA ([id number]) on 12/03/2018 5:48:54 PM Referred By: HOLLI Confirmed By:DR. David PALMA
[2018-12-03] MEDS: Colchicine 0.3 MG TAB PO SCH (21:03)
[2018-12-04] MEDS: Ketorolac Tromethamine 30 MG/ML VIAL IVP SCH ×2 (05:09→13:49)
[2018-12-04] MEDS: Levothyroxine Sodium 88 MCG TAB PO SCH (05:09)
[2018-12-04] MEDS: metFORMIN 500 MG TAB PO SCH (08:14)
[2018-12-04] MEDS: Sucralfate 1 GM TAB PO SCH ×2 (08:14→12:27)
[2018-12-04] MEDS: glipiZIDE 10 MG TAB PO SCH (08:14)
[2018-12-04] MEDS: Carvedilol 25 MG TAB PO SCH (08:14)
[2018-12-04] MEDS: Colchicine 0.3 MG TAB PO SCH (08:54)
[2018-12-04] MEDS: Amlodipine 5 MG TAB PO SCH (08:54)
[2018-12-04] MEDS: Apixaban 5 MG TAB PO SCH (08:54)
[2018-12-04] MEDS: Folic Acid 1 MG TAB PO SCH (08:55)
[2018-12-04] MEDS: Furosemide 20 MG TAB PO SCH (08:55)
[2018-12-04] MEDS: Aspirin Chewable 81 MG TAB PO SCH (08:55)
--- NOTE | 2018-12-04 08:59 | OP ---
DATE OF PROCEDURE: 12/03/2018 PROCEDURE PERFORMED BY: Altaf De La Garza MD TIME OF PROCEDURE: 11:15 a.m. PROCEDURE PERFORMED: Bedside evaluation of pericardial effusion with transthoracic echocardiogram and pericardial drain removal. INDICATIONS FOR PROCEDURE: Small pericardial effusion found postablation the day prior and subsequent drainage during insertion. CONSENT: Risks, benefits, and alternatives were explained to the patient. All questions were answered and the patient consented to the procedure. ANESTHESIA: No anesthesia. DESCRIPTION OF THE PROCEDURE: Mr. Mcguire was evaluated with a bedside transthoracic echocardiogram to re-evaluate his pericardial effusion, which revealed it was well drained, no residual fluid accumulation surrounding the heart. Any additional fluid in the tubing was aspirated with a syringe. Sutures were removed, and pericardial drain was gently withdrawn without complication. ESTIMATED BLOOD LOSS: 0 mL. DISPOSITION: The patient tolerated the procedure well. Gauze dressing was placed over the drain site. We will continue to monitor for signs and symptoms of recurrent fluid accumulation. Dictated by Padma Guardado PA-C, for Dr. De La Garza. Job ID: [id number]
[2018-12-04] MEDS ORDERED: Famotidine 20 MG TAB PO SCH (09:00)
--- NOTE | 2018-12-04 10:54 | PRG ---
DATE OF SERVICE: 12/04/2018 SERVICE: Pulmonary Medicine. INTERVAL HISTORY: The patient is doing really well from respiratory standpoint. He has been weaned down to room air. Denies any chest pain. His pericardial drain was removed. He is about to take a shower. The pacemaker tech working on him. He denies any cough or dyspnea. It is limiting his activity at this point. PHYSICAL EXAMINATION: VITAL SIGNS: Afebrile, pulse 87, blood pressure 162/69, respirations 22, saturation 98% on room air. GENERAL: The patient is awake and alert, in no apparent distress. LUNGS: Decent air entry. Extensive crackling is present throughout bilateral lung shahid. HEART: Normal rate and regular. ABDOMEN: Soft, nontender, and nondistended. Bowel sounds are positive. MUSCULOSKELETAL: No pitting in the bilateral lower extremities. NEUROLOGIC: Grossly nonfocal. IMAGING STUDIES: Chest x-ray demonstrates dual lead AICD is in place. Pericardial catheter is noted. No acute cardiopulmonary abnormality is present. There is minimal cephalization and some fluid in the fissure with some Bradly B lines identified. Echocardiogram shows normal ejection fraction, left atrium is moderately dilated. No significant valvular abnormalities were appreciated. Pulmonary artery pressure was normal. ASSESSMENT: 1. Acute hypoxic respiratory failure, resolved. 2. Atrial fibrillation/flutter, status post ablation. 3. Pericardial effusion, status post pericardiocentesis, drain subsequently removed. DISCUSSION AND PLAN: The patient is doing wonderful from respiratory standpoint. We will continue to diurese him down to euvolemia. At this point, he has no further requirements for inpatient Pulmonary or Critical Care opinion, and I will sign off. Please call with additional questions or concerns through time. Job ID: [id number]
[2018-12-04] MEDS: HumaLOG 300 UNITS/3 ML VIAL SC PRN (12:23)
[2018-12-04 15:22] VITALS: BP 123/59; TEMP 98.1
--- NOTE | 2018-12-05 03:59 | DIS ---
DATE OF ADMISSION: 12/02/2018 DATE OF DISCHARGE: 12/04/2018 DIAGNOSES: Atrial fibrillation, atrial flutter, and pericardial effusion. PROCEDURES PERFORMED: Electrophysiology study with 3-dimensional mapping and ablation for atrial fibrillation and atrial flutter, pericardiocentesis for treatment of a small pericardial effusion, pericardial drain removal at bedside with echocardiography guidance. HISTORY OF PRESENT ILLNESS: Mr. Mcguire is a pleasant 73-year-old gentleman with a history of congestive heart failure, ischemic cardiomyopathy, and prior ventricular tachycardia ablation. He began to have atrial arrhythmia issues as well, attempted to be treated with sotalol and cardioversion, but the recurrence of arrhythmias, he has been refractory to these treatments. Ultimately, it was decided to proceed with an elective outpatient PVAI, which was performed on 12/02/[address] Rea. During the ablation, there was a small acute pericardial effusion on top of a small chronic pericardial effusion. Ultimately, it doubled in size; throughout the ablation, it was deemed significant enough to drain, which was performed at the end of the ablation procedure with a drain being left in place overnight to gravity. The following day, pericardial effusion was evaluated at bedside with transthoracic echo, there was not a substantial amount of output over the night and no significant fluid accumulation. The patient remained stable. Thus, the drain was removed. He was transferred out of ICU to telemetry and has been stable since removal of the drain. On telemetry, he was noted to have frequent PACs that were not correlating with any ventricular response despite his PAYROLL ACCOUNTING CLERK defibrillator that was in place. His device was interrogated and was found that he was oversensing T-wave that is altering his PAYROLL ACCOUNTING CLERK pacing. His device was programmed . He has continued to have some PACs post ablation, but ultimately, is in stable condition and feeling well this morning. He is eager to discharge home. SUBJECTIVE: The patient denies any heart racing, palpitations, chest pain, pressure, syncope, near syncope, stroke, stroke-like symptoms, bleeding from the groin sites, shortness of breath or dyspnea on exertion, not have any bloody stools or bloody urine. He is ambulating without difficulty and tolerating p.o. intake. REVIEW OF SYSTEMS: An 8-point review of systems is conducted, is negative except that listed above. OBJECTIVE: VITAL SIGNS: Temperature 98.1 degrees Fahrenheit, pulse 83, blood pressure 123/59, respirations 18, and oxygen saturation is 95% on room air. GENERAL: The patient is alert and oriented. Speech is clear. Affect is appropriate. NEUROLOGIC: Grossly intact and nonfocal. LUNGS: Clear to auscultation. HEART: Rate is irregularly irregular with crisp S1 and S2. ABDOMEN: Soft, nontender. Hepatojugular reflux is negative. EXTREMITIES: Warm and dry to touch without clubbing, cyanosis, or edema. Bilateral groin sites remain stable. Gait is stable without assistance. DATABASE: Telemetry and EKGs initially reflecting frequent PACs, non-conducted, but overall normal sinus rhythm. PAYROLL ACCOUNTING CLERK defibrillator was adjusted as mentioned above. SUMMARY AND DISCHARGE RECOMMENDATIONS: Mr. Mcguire is doing well this morning following his ablation. He was found to have a small but acute pericardial effusion that was drained, postablation removing approximately 100 mL of serosanguineous fluid. Out of an abundance of caution, Dr. Rea left his drain in place. The patient received heparin reversal as well as Kcentra to reverse the direct anticoagulant. The drain was removed the next morning, and he has done well. He is stable for discharge at this time. His PAYROLL ACCOUNTING CLERK defibrillator is working well. I will have him follow up in 6 weeks or sooner if symptoms dictate. He will contact our office with any postablation concerns or questions. He will resume his oral anticoagulation without interruption on Eliquis 5 mg p.o. b.i.d. and given a detailed post ablation discharge at home and reference. DISCHARGE MEDICATIONS: Resuming home medications of; 1. Coreg 25 mg b.i.d. 2. Metformin. 3. Glipizide. 4. Levothyroxine. 5. Imdur. 6. Folic acid. 7. Aspirin. 8. Eliquis 5 mg b.i.d. 9. Amlodipine. 10. Nitroglycerin. New prescriptions were called in for; 1. Sucralfate 1 g p.o. a.c. at bedtime x2 weeks. 2. Pantoprazole 40 mg p.o. daily x30 days. 3. Colchicine 0.3 mg p.o. b.i.d. x2 weeks. 4. He is also to continue his Lasix 20 mg daily and potassium 20 mEq daily. 5. For shortness of breath or weight gain, he may take an additional 20 mg of Lasix daily. CONDITION AT DISCHARGE: Stable. Job ID: [id number]
== END 2018-12-04 16:00 | disposition home or self-care (01) | DRG 273 ==
LOC: CCL 05:44 → CCU 11:12 → 2NO 12-03 21:51
PROVIDERS: ADMIT Internal Medicine Cardiovascular Disease; ATTEND Internal Medicine Cardiovascular Disease
PROC: 02583ZZ Destruction of Conduction Mechanism, Percutaneous Approach (ICD-10-PCS; principal; 2018-12-02)
PROC: 0JWT3PZ Revision of Cardiac Rhythm Related Device in Trunk Subcutaneous Tissue and Fascia, Percutaneous Approach (ICD-10-PCS; 2018-12-02)
PROC: 02K83ZZ Map Conduction Mechanism, Percutaneous Approach (ICD-10-PCS; 2018-12-02)
PROC: 4A023FZ Measurement of Cardiac Rhythm, Percutaneous Approach (ICD-10-PCS; 2018-12-02)
PROC: 0W9D30Z Drainage of Pericardial Cavity with Drainage Device, Percutaneous Approach (ICD-10-PCS; 2018-12-02)
PROC: B24 Imaging, Heart, Ultrasonography (ICD-10-PCS; 2018-12-03)
DX: I48.4 Atypical atrial flutter (principal); J96.01 Acute respiratory failure with hypoxia; I31.3 Pericardial effusion (noninflammatory); I50.9 Heart failure, unspecified; E11.9 Type 2 diabetes mellitus without complications; I11.0 Hypertensive heart disease with heart failure; I25.10 Atherosclerotic heart disease of native coronary artery without angina pectoris; E78.5 Hyperlipidemia, unspecified; E03.9 Hypothyroidism, unspecified; Z88.8 Allergy status to other drugs, medicaments and biological substances; Z91.048 Other nonmedicinal substance allergy status; Z95.0 Presence of cardiac pacemaker; Z95.5 Presence of coronary angioplasty implant and graft
CPT/HCPCS: 33025; 36415; 36416; 71045; 76942; 80048; 83735; 85025; 85347; 85610; 85730; 92960; 93005; 93010; 93306; 93613; 93655; 93656; 93662; C1731; C1732; C1759; C1760; C1769; C9132; J1170; J1644; J1885; J1940; J2001; J2704; J2720; J3010; J3475; Q9967

== ENCOUNTER 2019-03-04 10:23 | Day surgery (SDC) | payer MEDICARE ==
[2019-03-03 18:28] VITALS: BMI 25.7
[2019-03-04 12:05] LABS: #Eosinphils 0.1 thou/uL (0.0-0.7); #Lymphocytes 1.9 thou/uL (1.20-3.40); #Monocytes 0.5 thou/uL (0.11-0.59); #Neutrophils 3.4 thou/uL (1.40-6.50); %Basophils 0.5 % (0.0-1.0); %Eosinophils 1.9 % (0.0-10.0); %Lymphocytes 31.7 % (21.0-51.0); %Monocytes 8.3 % (0.0-10.0); %Neutrophils 57.7 % (42.0-75.0); Hemoglobin 13.6 g/dL (14.0-18.0); Mean Corpuscular HGB CONC 33.3 g/dL (32.0-36.0); Mean Corpuscular Hemoglobin 29.2 pg (27.0-31.0); Mean Corpuscular Volume 87.7 fL (78.0-98.0); Mean Platelet Volume 7.5 fL (7.4-10.4); Platelet Count 162 thou/uL (130-400); RBC Distribution Width 13.7 % (11.5-14.5); Red Blood Cell (RBC) Count 4.65 mill/uL (4.70-6.10)
[2019-03-04 12:09] LABS: INR-International Normal Ratio 1.1; Prothrombin Time 13.8 SEC (12.0-14.7)
[2019-03-04 12:36] LABS: Anion Gap 15 mmol/L (10-20); BUN (Urea Nitrogen) 24 mg/dL (8.4-25.7); Calc. Creatinine Clearance 77 mL/min (70-130); Calcium 10.1 mg/dL (7.8-10.44); Carbon Dioxide 23 mmol/L (23-31); Chloride 106 mmol/L (98-107); Estimated GFR-MDRD 80; Glucose 122 mg/dL (83-110); Potassium 5.2 mmol/L (3.5-5.1); Sodium 139 mmol/L (136-145)
[2019-03-04] MEDS ORDERED: PROPOFOL 20 ML ONE (14:14)
--- NOTE | 2019-03-04 21:30 | OP ---
DATE OF PROCEDURE: 03/04/2019 Internal Cardioversion Report REASON FOR PROCEDURE: Mr. Mcguire is a 73-year-old man with prior history of CHF, ventricular tachycardia, who had recurrent atrial arrhythmias. He underwent pulmonary venous isolation procedure at recurrence. He is now here for cardioversion attempts. DESCRIPTION OF PROCEDURE: The patient received propofol by Anesthesia specialist. After adequate level of sedation was achieved and the ICD was interrogated and found to be of adequate function, we attempted atrial overdrive pacing to terminate the atypical atrial flutter present at baseline. Multiple cycle lengths overdrive pacing did not terminate the arrhythmia, but converted the patient back into atrial fibrillation. At this point, a 35-joule synchronized shock was delivered through the device, which promptly converted the patient back to sinus rhythm. CONCLUSION: Successful cardioversion. PLAN: Continue oral anticoagulation and consider antiarrhythmic agents if recurrences are seen. Job ID: [id number]
== END 2019-03-04 15:36 | disposition home or self-care (01) ==
LOC: CCL 10:23
PROVIDERS: ATTEND Internal Medicine Cardiovascular Disease
PROC: 5A2204Z Restoration of Cardiac Rhythm, Single (ICD-10-PCS; principal; 2019-03-04)
DX: I48.1 Persistent atrial fibrillation (principal); I50.9 Heart failure, unspecified; I47.2 Ventricular tachycardia; I25.5 Ischemic cardiomyopathy; Z79.01 Long term (current) use of anticoagulants; Z79.82 Long term (current) use of aspirin; Z79.84 Long term (current) use of oral hypoglycemic drugs; Z95.810 Presence of automatic (implantable) cardiac defibrillator; Z79.899 Other long term (current) drug therapy; Z88.8 Allergy status to other drugs, medicaments and biological substances; Z98.890 Other specified postprocedural states
CPT/HCPCS: 80048; 85025; 85610; 85730; 92960; 93005; 93010; J2704

== ENCOUNTER 2021-08-18 11:29 | Outpatient (CLI) | payer MEDICARE ==
[2021-08-18 13:34] LABS: Hemoglobin 13.5 g/dL (13.5-17.5); Mean Corpuscular Hemoglobin 29.7 pg (27.0-33.0); Platelet Count 155 10x3/uL (150-450); RBC Distribution Width 13.1 % (11.5-14.5); Red Blood Cell (RBC) Count 4.54 10x6/uL (4.32-5.72); White Blood Cell (WBC) Count 5.9 10x3/uL (3.5-10.5)
[2021-08-18 13:50] LABS: PTT 31.6 sec (22.0-33.0); Prothrombin Time 11.1 sec (9.5-12.1)
[2021-08-18 13:58] LABS: Anion Gap 16 mmol/L (10-20); BUN (Urea Nitrogen) 17 mg/dL (8.4-25.7); Calc. Creatinine Clearance 0 mL/min (70-130); Calcium 9.3 mg/dL (7.8-10.44); Carbon Dioxide 27 mmol/L (23-31); Chloride 103 mmol/L (98-107); Glucose 155 mg/dL (83-110); Potassium 4.7 mmol/L (3.5-5.1); Sodium 141 mmol/L (136-145)
[2021-08-19 12:10] LABS: SARS-CoV-2 PCR by NAA Not Detected (NotDetected)
== END 2021-08-18 11:30 | disposition home or self-care (01) ==
LOC: LABBT 11:29
PROVIDERS: ATTEND Internal Medicine Cardiovascular Disease
DX: Z01.812 Encounter for preprocedural laboratory examination (principal); I48.19 Other persistent atrial fibrillation; Z20.822 Contact with and (suspected) exposure to COVID-19
CPT/HCPCS: 80048; 85027; 85610; 85730; U0003; U0005

== ENCOUNTER 2021-08-23 05:41 | Day surgery (SDC) | payer MEDICARE ==
[2021-08-15 15:31] VITALS: BMI 24.7
[2021-08-23] MEDS ORDERED: PROPOFOL 0 ML ONE (06:57)
== END 2021-08-23 07:50 | disposition home or self-care (01) ==
LOC: SDC 05:41
PROVIDERS: ATTEND Internal Medicine Cardiovascular Disease
DX: I48.19 Other persistent atrial fibrillation (principal); I44.2 Atrioventricular block, complete; I47.2 Ventricular tachycardia; I49.3 Ventricular premature depolarization; I25.10 Atherosclerotic heart disease of native coronary artery without angina pectoris; I25.5 Ischemic cardiomyopathy; I11.0 Hypertensive heart disease with heart failure; I50.20 Unspecified systolic (congestive) heart failure; E11.9 Type 2 diabetes mellitus without complications; M10.9 Gout, unspecified; E78.5 Hyperlipidemia, unspecified; N40.0 Benign prostatic hyperplasia without lower urinary tract symptoms; Z53.8 Procedure and treatment not carried out for other reasons; Z87.891 Personal history of nicotine dependence; Z79.01 Long term (current) use of anticoagulants; Z79.82 Long term (current) use of aspirin; Z79.84 Long term (current) use of oral hypoglycemic drugs; Z79.899 Other long term (current) drug therapy; Z88.8 Allergy status to other drugs, medicaments and biological substances; Z95.810 Presence of automatic (implantable) cardiac defibrillator; Z95.5 Presence of coronary angioplasty implant and graft
CPT/HCPCS: J2704